=== PATIENT | female | born 1995 | race Caucasian/White ===

== ENCOUNTER 2018-10-18 14:15 | Emergency (ER) | payer OTHER ==
--- NOTE | 2018-10-18 14:39 | ER Document Report ---
ED Medical Screen (RME) - General Chief Complaint: Abdominal Pain Stated Complaint: ABDOMINAL PAIN Time Seen by Provider: 10/18/18 14:35 Notes: 23-year-old female patient complaining 1 week history of right upper quadrant abdominal pain that tends to go down the anterolateral abdominal wall. She is based on patency test. She does not know when her last menstrual period was as she is irregular and does not keep track of them. She does seem to be most tender in the right upper quadrant lateral region over the inferior ribs. I have greeted and performed a rapid initial assessment of this patient. A comprehensive ED assessment and evaluation of the patient, analysis of test results and completion of the medical decision making process will be conducted by additional ED providers. TRAVEL OUTSIDE OF THE [place] IN LAST 30 DAYS: No - Related Data Allergies/Adverse Reactions: No Known Allergies Allergy (Unverified 10/18/18 14:16) Physical Exam - Vital signs Vitals: Temp Pulse Resp BP Pulse Ox 98.6 F 110 H 18 123/76 97 10/18/18 14:19 10/18/18 14:19 10/18/18 14:19 10/18/18 14:19 10/18/18 14:19 Course - Vital Signs Vital signs: Temp Pulse Resp BP Pulse Ox 98.6 F 110 H 18 123/76 97 10/18/18 14:19 10/18/18 14:19 10/18/18 14:19 10/18/18 14:19 10/18/18 14:19
[2018-10-18 15:03] LABS: ABSOLUTE EOSINOPHILS # (AUTO) 0.1 10^3/uL (0.0-0.6); ABSOLUTE LYMPHOCYTES (AUTO) 2.7 10^3/uL (0.5-4.7); ABSOLUTE MONOCYTES (AUTO) 0.7 10^3/uL (0.1-1.4); ABSOLUTE NEUT (AUTO) 4.2 10^3/uL (1.7-8.2); BASOPHILS % (AUTO) 0.6 % (0-2); EOSINOPHILS % (AUTO) 1.4 % (0-6); HEMATOCRIT 38.5 % (36.0-47.0); HEMOGLOBIN 13.1 g/dL (12.0-15.5); LYMPHOCYTES % (AUTO) 34.8 % (13-45); MEAN CORPUSCULAR HEMOGLOBIN 29.9 pg (27.0-33.4); MEAN CORPUSCULAR VOLUME 88 fl (80-97); MONOCYTES % (AUTO) 9.2 % (3-13); PLATELET COUNT 258 10^3/uL (150-450); RED BLOOD COUNT 4.39 10^6/uL (3.72-5.28); RED CELL DISTRIBUTION WIDTH 12.8 % (11.5-14.0); TOTAL CELLS COUNTED % (AUTO) 100 %; WHITE BLOOD COUNT 7.8 10^3/uL (4.0-10.5)
[2018-10-18 15:09] LABS: ALANINE AMINOTRANSFERASE 11 U/L (9-52); ALBUMIN 4.7 g/dL (3.5-5.0); ALKALINE PHOSPHATASE 59 U/L (38-126); ANION GAP 10 (5-19); ASPARTATE AMINO TRANSFERASE 21 U/L (14-36); BILIRUBIN,DIRECT 0.2 mg/dL (0.0-0.4); BILIRUBIN,TOTAL 0.4 mg/dL (0.2-1.3); BLOOD UREA NITROGEN 8 mg/dL (7-20); CALCIUM 9.9 mg/dL (8.4-10.2); CARBON DIOXIDE 25 mmol/L (22-30); CHLORIDE 106 mmol/L (98-107); GLUCOSE 87 mg/dL (75-110); POTASSIUM 4.1 mmol/L (3.6-5.0); SODIUM 141.4 mmol/L (137-145); TOTAL PROTEIN 7.5 g/dL (6.3-8.2)
[2018-10-18 15:18] LABS: APPEARANCE,URINE SLIGHTLY-CLOUDY; BILIRUBIN,URINE NEGATIVE (NEGATIVE); COLOR,URINE YELLOW; GLUCOSE, URINE NEGATIVE (NEGATIVE); KETONES,URINE NEGATIVE (NEGATIVE); LEUKOCYTE ESTERASE,URINE NEGATIVE (NEGATIVE); NITRITE,URINE NEGATIVE (NEGATIVE); PROTEIN,URINE NEGATIVE (NEGATIVE); URINE SPECIFIC GRAVITY 1.023
--- NOTE | 2018-10-18 15:57 | RADIOLOGY REPORT (SQ) ---
EXAM DESCRIPTION: U/S OB TRANSVAGINAL W/O DOP COMPLETED DATE/TIME: 10/18/2018 3:44 pm REASON FOR STUDY: with right sided abdominal pain COMPARISON: None. TECHNIQUE: Transvaginal static and realtime grayscale images acquired of the pelvis. Additional larissa cted spectral and color Doppler images recorded. All images stored on PACs. bHCG: Not available. CLINICAL DATES: Unknown. LIMITATIONS: None. FINDINGS: FETUS: Candidate intrauterine gestational sac measuring 0.90 cm. ULTRASOUND EGA: 5 weeks, 5 days ULTRASOUND SALVATORE: 06/15/2019 EFW: Not applicable less than 20 weeks. CRL: Not visualized FHR: Not visualized SUBCHORIONIC BLEED: Probable subchorionic hemorrhage measuring 3.7 x 1.8 x 1.6 cm. UTERUS: No masses. No anomalies. CERVICAL LENGTH: 3.1 cm Closed. RIGHT ADNEXA: Ovary not identified due to poor acoustical window. LEFT ADNEXA: Ovary not identified due to poor acoustical window. FREE FLUID: None. OTHER: No other significant finding. IMPRESSION: Early candidate intrauterine gestation of uncertain viability, EGA 5 weeks, 5 days. The re is a sizable subchorionic hemorrhage. Recommend serial beta HCG and follow-up ultrasound in 7 to 14 days to ensure continued development and viability. Trimester of : First - 0 to 13 weeks. TECHNICAL DOCUMENTATION: JOB ID: [id number] [employer]- All Rights Reserved Reading location - IP/workstation name: [email or web address]
--- NOTE | 2018-10-18 17:12 | ER Document Report ---
ED General - General Chief Complaint: Abdominal Pain Stated Complaint: ABDOMINAL PAIN Time Seen by Provider: 10/18/18 14:35 Mode of Arrival: Ambulatory Information source: Patient Notes: Patient is an otherwise healthy 23-year-old female who presents to the emergency department with complaints of right upper quadrant pain that radiates down to the right lower quadrant. Patient denies any fever or chills. Patient reports mild nausea without vomiting or diarrhea. Patient reports that she is currently , she thinks she is about 4-6 weeks. She denies any fever, vaginal bleeding, pain with urination or abnormal discharge. TRAVEL OUTSIDE OF THE [place] IN LAST 30 DAYS: No - Related Data Allergies/Adverse Reactions: No Known Allergies Allergy (Unverified 10/18/18 14:16) Past Medical History - General Information source: Patient - Social History Smoking Status: Current Every Day Smoker Chew tobacco use (# tins/day): No Frequency of alcohol use: None Drug Abuse: None Family History: Reviewed & Not Pertinent Patient has suicidal ideation: No Patient has homicidal ideation: No - Medical History Medical History: Negative Renal/ Medical History: Denies: Hx Peritoneal Dialysis Surgical Hx: Negative - Immunizations Immunizations up to date: Yes Review of Systems - Review of Systems Gastrointestinal: Abdominal pain, Nausea -: Yes All other systems reviewed and negative Physical Exam - Vital signs Vitals: Temp Pulse Resp BP Pulse Ox 98.6 F 110 H 18 123/76 97 10/18/18 14:19 10/18/18 14:19 10/18/18 14:19 10/18/18 14:19 10/18/18 14:19 - Notes Notes: PHYSICAL EXAMINATION: GENERAL: Well-appearing, well-nourished and in no acute distress. HEAD: Atraumatic, normocephalic. EYES: Pupils equal round and reactive to light, extraocular movements intact, conjunctiva are normal. ENT: Nares patent, oropharynx clear without exudates. Moist mucous membranes. NECK: Normal range of motion, supple without lymphadenopathy LUNGS: Breath sounds clear to auscultation bilaterally and equal. No wheezes rales or rhonchi. HEART: Regular rate and rhythm without murmurs ABDOMEN: Soft, nontender, nondistended abdomen. No guarding, no rebound. No masses appreciated. Negative Soria sign. Female : No CVA tenderness. Musculoskeletal: Normal range of motion, no pitting or edema. No cyanosis. NEUROLOGICAL: Cranial nerves grossly intact. Normal speech, normal gait. Normal sensory, motor exams PSYCH: Normal mood, normal affect. SKIN: Warm, Dry, normal turgor, no rashes or lesions noted. Course - Re-evaluation Re-evalutation: CBC, CMP and urinalysis are unremarkable. HCG is positive with a quantitative hCG of 10,466. Transvaginal pelvic ultrasound reveals a intrauterine with an approximate gestational age of 5 weeks 5 days. There is a small subchorionic bleed. Patient is not having any vaginal bleeding. All of the results were discussed with the patient. Patient will return to the emergency department in 2 days for a repeat hCG. Patient also given ED return precautions for appendicitis although I feel this is unlikely due to her reassuring abdominal exam. Patient verbalizes understanding of same and is agreeable to the plan. - Vital Signs Vital signs: Temp Pulse Resp BP Pulse Ox 98.9 F 87 18 118/73 100 10/18/18 17:38 10/18/18 17:38 10/18/18 17:38 10/18/18 17:38 10/18/18 17:38 - Laboratory Result Diagrams: 10/18/18 14:46 10/18/18 14:46 Laboratory results interpreted by me: 10/18/18 10/18/18 14:46 14:46 Beta HCG, Quant 98515.00 H Urine Urobilinogen 2.0 H Urine Ascorbic Acid 20 H Discharge - Discharge Clinical Impression: Subchorionic bleed Qualifiers: Fetus number: single or unspecified fetus Trimester: first trimester Qualified Code(s): O41.8X10 - Other specified disorders of amniotic fluid and membranes, first trimester, not applicable or unspecified Condition: Stable Disposition: HOME, SELF-CARE Additional Instructions: Please return to the emergency department in 48 hours to have repeat blood work done, you do not have to check in at the ER walk straight down to the outpatient lab. I will be working 2 days from now from 2 PM to 2 AM, after you have your blood work drawn please call me at [phone] and we can discuss your repeat blood work. Please refrain from any sexual intercourse or anything entering the vagina until seen by OB. Forms: Follow-Up Laboratory Testing Referrals: DELMIS,HAMZAH, MD [Primary Care Provider] - Follow up as needed
[2018-10-18 17:40] VITALS: BP 118/73
== END 2018-10-18 17:38 | disposition home or self-care (01) ==
LOC: ER 14:15
DX: O41.8X10 Other specified disorders of amniotic fluid and membranes, first trimester, not applicable or unspecified (principal); O26.891 Other specified pregnancy related conditions, first trimester; R10.11 Right upper quadrant pain; R10.31 Right lower quadrant pain; R11.0 Nausea; O99.331 Smoking (tobacco) complicating pregnancy, first trimester; Z3A.00 Weeks of gestation of pregnancy not specified
CPT/HCPCS: 36415; 76817; 80053; 81001; 84702; 85025; 99284

== ENCOUNTER → 2018-10-20 | Outpatient (CLI) | payer OTHER | LOC: LAB 13:45 | PROVIDERS: ATTEND Nurse Practitioner | DX: O46.90 Antepartum hemorrhage, unspecified, unspecified trimester (principal); Z3A.00 Weeks of gestation of pregnancy not specified | CPT/HCPCS: 36415; 84702 ==

== ENCOUNTER 2019-05-17 15:09 | Outpatient (CLI) | payer OTHER ==
[2019-05-17 16:04] LABS: HEMATOCRIT 32.2 % (36.0-47.0); HEMOGLOBIN 10.9 g/dL (12.0-15.5); MEAN CORPUSCULAR HEMOGLOBIN 30.6 pg (27.0-33.4); MEAN CORPUSCULAR VOLUME 90 fl (80-97); PLATELET COUNT 284 10^3/uL (150-450); RED BLOOD COUNT 3.58 10^6/uL (3.72-5.28); RED CELL DISTRIBUTION WIDTH 13.4 % (11.5-14.0); WHITE BLOOD COUNT 13.9 10^3/uL (4.0-10.5)
[2019-05-17 16:08] LABS: APPEARANCE,URINE SLIGHTLY-CLOUDY; BILIRUBIN,URINE NEGATIVE (NEGATIVE); COLOR,URINE YELLOW; GLUCOSE, URINE NEGATIVE (NEGATIVE); KETONES,URINE NEGATIVE (NEGATIVE); LEUKOCYTE ESTERASE,URINE NEGATIVE (NEGATIVE); NITRITE,URINE NEGATIVE (NEGATIVE); PROTEIN,URINE 30 mg/dL (NEGATIVE); URINE SPECIFIC GRAVITY 1.006; UROBILINOGEN,URINE NEGATIVE mg/dL (<2.0)
[2019-05-17 16:21] LABS: ALANINE AMINOTRANSFERASE 16 U/L (9-52); ALBUMIN 3.5 g/dL (3.5-5.0); ALKALINE PHOSPHATASE 102 U/L (38-126); ANION GAP 7 (5-19); ASPARTATE AMINO TRANSFERASE 19 U/L (14-36); BILIRUBIN,DIRECT 0.1 mg/dL (0.0-0.4); BILIRUBIN,TOTAL 0.3 mg/dL (0.2-1.3); BLOOD UREA NITROGEN 3 mg/dL (7-20); CALCIUM 9.3 mg/dL (8.4-10.2); CARBON DIOXIDE 23 mmol/L (22-30); CHLORIDE 108 mmol/L (98-107); GLUCOSE 73 mg/dL (75-110); POTASSIUM 3.7 mmol/L (3.6-5.0); TOTAL PROTEIN 6.1 g/dL (6.3-8.2); URIC ACID 4.5 mg/dL (2.5-6.2)
[2019-05-17 16:23] LABS: URINE AMPHETAMINES SCREEN NEGATIVE; URINE BARBITURATES SCREEN NEGATIVE; URINE BENZODIAZEPINES SCREEN NEGATIVE; URINE COCAINE SCREEN NEGATIVE; URINE MARIJUANA (THC) SCREEN NEGATIVE; URINE METHADONE SCREEN NEGATIVE; URINE PHENCYCLIDINE SCREEN NEGATIVE
[2019-05-17 16:27] LABS: UR PRO/CREAT RATIO RESULT 1.7 mg/mg (0.0-0.2); URINE CREATININE 37.7 mg/dL (16-327); URINE PROTEIN 64.5 mg/dL (<12)
--- NOTE | 2019-05-17 16:39 | Non Stress Test Report ---
Non Stress Test Datetime Report Generated by CPN: 05/17/2019 16:39 DEMOGRAPHIC EGA NST: 35.2 INDICATION Indication for Study: Other MONITORING Monitor Explained: Monitor Explained; Test Explained; Patient Verbalized Understanding Time on Monitor: 05/17/2019 15:26 Time off Monitor: 05/17/2019 16:23 NST Duration: 57 NST INTERVENTIONS NST Interventions: None Physician Notified NST: Dr. Johnson BABY A: [id number] BABY A Movement : Present Contraction Frequency : 0 FHR Baseline : 135 Accelerations : 15X15 Decelerations : None Decelerations : None Variability : Moderate 6-25bpm Variability : Moderate 6-25bpm NST Review: Meets Criteria for Reactive NST NST Review and Verified By : Dereje Mccoy RN NST Results: Reactive NST REPORT Report Trigger: Send Report
== END 2019-05-17 16:48 | disposition home or self-care (01) ==
LOC: LC 15:09
PROVIDERS: ATTEND Obstetrics & Gynecology
PROC: 4A1HXCZ Monitoring of Products of Conception, Cardiac Rate, External Approach (ICD-10-PCS; principal; 2019-05-17)
DX: O47.03 False labor before 37 completed weeks of gestation, third trimester (principal); Z3A.35 35 weeks gestation of pregnancy
CPT/HCPCS: 36415; 59025; 80053; 80307; 81001; 82570; 84156; 84550; 85027